=== PATIENT | female | born 1945 | race Caucasian/White ===

== ENCOUNTER 2020-04-25 09:55 | Emergency (ER) | payer MEDICARE, BC, OTHER ==
[2020-04-25] MEDS ORDERED: Sodium Chloride 0.9% 2.5 ML Syringe FLUSH PRN (10:05)
[2020-04-25] MEDS ORDERED: Lactated Ringers 500 ML IV ONE (10:05)
[2020-04-25] MEDS ORDERED: Sodium Chloride 0.9% 10 ML Syringe FLUSH PRN (10:05)
--- NOTE | 2020-04-25 10:11 | EDM.PDOC ---
ED HPI GENERAL MEDICAL PROBLEM - General Chief Complaint: Respiratory Problem Stated Complaint: possible blood clot in ankle Time Seen by Provider: 04/25/20 10:03 Source of Information: Reports: Patient, EMS History Limitations: Reports: No Limitations - History of Present Illness INITIAL COMMENTS - FREE TEXT/NARRATIVE: 75-year-old female status post L3-L5 vertebral fusion on Sunday at [facility] was BIBA for cough and right calf pain. She was sdischarged on , and was supposedly ambulating hourly during her hospitalization. She has been taking [place] for her chronic back pain over the last 6 weeks. She was tested negative for COVID on Sunday. She started having a dry cough 2 days ago which has worsened today, associated with right calf pain and shortness of breath and pleurisy and nausea. She denies chest pain, fever, chills, abdominal pain. She has not had a BM for 4 days. ROS: A 10-point review of systems, other than pertinent positives and negatives as stated per HPI, is otherwise negative Past medical history: No additional pertinent history Past Surgical history: No additional pertinent history Social history: No additional pertinent history Family history: No additional pertinent history PHYSICAL EXAM General: AOx4, GCS = 15, mild distress HEENT: dry mucous membrane Neck: supple, no meningismus, no Kernig or Brudzinski Cardiac: S1S2 tachycardia Respiratory: Bilateral expiratory wheezing, coughing violently Abdomen: Soft, nontender, no rebound or guarding, nondistended, no pulsatile mass. Back: nontender Musculoskeletal: NVI distally, no deformity, right calf tender to palpation, DP pulse +2 bilaterally Neuro: No focal deficits. right calf Pain Score (Numeric/FACES): 5 - Related Data Allergies Allergy/AdvReac Type Severity Reaction Status Date / Time azithromycin [From Zithromax] Allergy Nausea and Verified 09/02/16 12:03 Vomiting Home Meds: Home Meds Estrogens, Conjugated [Premarin] 0.3 mg PO DAILY 02/08/15 [History] Plexus Supplement 1 dose PO DAILY 07/20/16 [History] hydroCHLOROthiazide [Hydrochlorothiazide] 12.5 mg PO DAILY 07/20/16 [History] Citalopram Hydrobromide [Celexa] 10 mg PO DAILY 04/25/20 [History] Pramipexole [Mirapex] 0.125 mg PO BID 04/25/20 [History] Past Medical History HEENT History: Reports: Other (See Below) Other HEENT History: wears glasses; fluid in ear Cardiovascular History: Reports: None Respiratory History: Reports: None Gastrointestinal History: Reports: None Genitourinary History: Reports: None [employer] History: Reports: Musculoskeletal History: Reports: Arthritis Other Musculoskeletal History: hands Neurological History: Reports: Migraines, Vertigo Other Neuro History: 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 Psychiatric History: Reports: None Endocrine/Metabolic History: Reports: None Hematologic History: Reports: Blood Transfusion(s), Other (See Below) Other Hematologic History: had blood transfusion prior to hysterectomy Immunologic History: Reports: None Oncologic (Cancer) History: Reports: None Dermatologic History: Reports: None - Past Surgical History Musculoskeletal Surgical History: Reports: Carpal Tunnel, Other (See Below) Social & Family History - Family History Family Medical History: Noncontributory Oncologic: Reports: Lung - Caffeine Use Caffeine Use: Reports: None ED ROS GENERAL - Review of Systems Review Of Systems: Comprehensive ROS is negative, except as noted in HPI. (see dictation) ED EXAM, GENERAL - Physical Exam Exam: See Below (see dictation) EKG INTERPRETATION EKG Interpretation Comments: 104 bpm, Sinus tachycardia, normal QRS interval, TWi on III,AVF, no STEMI. EKG and rhythm strip interpreted by me at 0959 Course - Vital Signs Last Recorded V/S: Last Vital Signs Temp 97.7 F 04/25/20 10:44 Pulse 107 H 04/25/20 10:44 Resp 16 04/25/20 10:44 BP 155/92 H 04/25/20 10:44 Pulse Ox 95 04/25/20 10:44 - Orders/Labs/Meds Orders: Active Orders 24 hr Category Date Time Status Cardiac Monitoring [RC] . DIRECTED Care 04/25/20 10:05 Active EKG Documentation Completion [RC] STAT Care 04/25/20 10:06 Active Pulse Oximetry [RC] ASDIRECTED Care 04/25/20 10:05 Active CORONAVIRUS COVID-19 PCR PHL Stat Lab 04/25/20 12:18 Received CULTURE BLOOD [BC] Stat Lab 04/25/20 10:03 Received CULTURE BLOOD [BC] Stat Lab 04/25/20 10:08 Received PTT,PARTIAL THROMBOPLSTIN TIME [COAG] Q6 Lab 04/25/20 17:15 Ordered PTT,PARTIAL THROMBOPLSTIN TIME [COAG] Q6 Lab 04/25/20 23:15 Ordered PTT,PARTIAL THROMBOPLSTIN TIME [COAG] Q6 Lab 04/26/20 05:15 Ordered PTT,PARTIAL THROMBOPLSTIN TIME [COAG] Q Lab 04/26/20 11:15 Ordered PTT,PARTIAL THROMBOPLSTIN TIME [COAG] Q Lab 04/26/20 17:15 Ordered PTT,PARTIAL THROMBOPLSTIN TIME [COAG] Q Lab 04/26/20 23:15 Ordered Heparin Sod,Pork In 0.45% Nacl [Heparin-1/2Ns 25,000 Med 04/25/20 12:45 Active Units/500] 25,000 unit in 500 ml IV TITRATE Sodium Chloride 0.9% [Saline Flush] Med 04/25/20 10:05 Active 10 ml FLUSH ASDIRECTED PRN Sodium Chloride 0.9% [Saline Flush] [facility] 04/25/20 10:05 Active 2.5 ml FLUSH ASDIRECTED PRN Blood Culture x2 Reflex Set [OM.PC] Stat Ot 04/25/20 10:06 Ordered Saline Lock Insert [OM.PC] Stat Ot 04/25/20 10:05 Ordered Medication Orders Heparin Sodium/Sodium Chloride (Heparin-1/2ns 25,000 Units/500) 25,000 unit in 500 mls @ 26 mls/hr IV TITRATE MEHDI; Protocol Last Admin: 04/25/20 12:48 Dose: 1,300 units/hr, 26 mls/hr Documented by: DELGADO Cosigned by: MICHAEL Sodium Chloride (Saline Flush) 10 ml FLUSH ASDIRECTED PRN PRN Reason: Keep Vein Open Last Admin: 04/25/20 10:38 Dose: 10 ml Documented by: SLATBRI Sodium Chloride (Saline Flush) 2.5 ml FLUSH ASDIRECTED PRN PRN Reason: Keep Vein Open Last Admin: 04/25/20 10:38 Dose: 2.5 ml Documented by: DELGADO Labs: Laboratory Tests 04/25/20 04/25/20 04/25/20 Range/Units 10:03 10:03 10:03 WBC 6.34 (4.0-11.0) K/uL RBC 3.16 L (4.30-5.90) M/uL Hgb 9.1 L (12.0-16.0) g/dL Hct 27.6 L (36.0-46.0) % MCV 87.3 (80.0-98.0) fL MCH 28.8 (27.0-32.0) pg MCHC 33.0 (31.0-37.0) g/dL RDW Std Deviation 46.3 (28.0-62.0) fl RDW Coeff of Jessica 15 (11.0-15.0) % Plt Count 274 (150-400) K/uL MPV 10.40 (7.40-12.00) fL Neut % (Auto) 72.8 (48.0-80.0) % Lymph % (Auto) 16.9 (16.0-40.0) % Edgar % (Auto) 9.0 (0.0-15.0) % Eos % (Auto) 1.1 (0.0-7.0) % Baso % (Auto) 0.2 (0.0-1.5) % Neut # (Auto) 4.6 (1.4-5.7) K/uL Lymph # (Auto) 1.1 (0.6-2.4) K/uL Edgar # (Auto) 0.6 (0.0-0.8) K/uL Eos # (Auto) 0.1 (0.0-0.7) K/uL Baso # (Auto) 0.0 (0.0-0.1) K/uL Nucleated RBC % 0.0 /100WBC Nucleated RBCs # 0 K/uL INR 1.22 APTT (18.6-31.3) SEC Lactate (0.20-2.00) mmol/L Sodium 136 (136-145) mmol/L Potassium 5.0 (3.5-5.1) mmol/L Chloride 100 (98-107) mmol/L Carbon Dioxide 24.3 (21.0-32.0) mmol/L BUN 27 H (7.0-18.0) mg/dL Creatinine 1.3 H (0.6-1.0) mg/dL Est Cr Clr Drug Dosing TNP Estimated GFR (MDRD) 40.2 ml/min Glucose 154 H (74-106) mg/dL Calcium 8.7 (8.5-10.1) mg/dL Total Bilirubin 0.9 (0.2-1.0) mg/dL AST 1499 H (15-37) IU/L ALT 643 H (14-63) IU/L Alkaline Phosphatase 67 (46-116) U/L Troponin I 0.209 H* (0.000-0.056) ng/mL B-Natriuretic Peptide (<100) PG/ML Total Protein 6.3 L (6.4-8.2) g/dL Albumin 2.9 L (3.4-5.0) g/dL Globulin 3.4 (2.6-4.0) g/dL Albumin/Globulin Ratio 0.9 (0.9-1.6) Acetaminophen ug/mL SARS CoV-2 RNA Rapid ANGIE (NEGATIVE) 04/25/20 04/25/20 04/25/20 Range/Units 10:03 10:03 10:03 WBC (4.0-11.0) K/uL RBC (4.30-5.90) M/uL Hgb (12.0-16.0) g/dL Hct (36.0-46.0) % MCV (80.0-98.0) fL MCH (27.0-32.0) pg MCHC (31.0-37.0) g/dL RDW Std Deviation (28.0-62.0) fl RDW Coeff of Jessica (11.0-15.0) % Plt Count (150-400) K/uL MPV (7.40-12.00) fL Neut % (Auto) (48.0-80.0) % Lymph % (Auto) (16.0-40.0) % Edgar % (Auto) (0.0-15.0) % Eos % (Auto) (0.0-7.0) % Baso % (Auto) (0.0-1.5) % Neut # (Auto) (1.4-5.7) K/uL Lymph # (Auto) (0.6-2.4) K/uL Edgar # (Auto) (0.0-0.8) K/uL Eos # (Auto) (0.0-0.7) K/uL Baso # (Auto) (0.0-0.1) K/uL Nucleated RBC % /100WBC Nucleated RBCs # K/uL INR APTT (18.6-31.3) SEC Lactate 2.1 H* (0.20-2.00) mmol/L Sodium (136-145) mmol/L Potassium (3.5-5.1) mmol/L Chloride (98-107) mmol/L Carbon Dioxide (21.0-32.0) mmol/L BUN (7.0-18.0) mg/dL Creatinine (0.6-1.0) mg/dL Est Cr Clr Drug Dosing Estimated GFR (MDRD) ml/min Glucose (74-106) mg/dL Calcium (8.5-10.1) mg/dL Total Bilirubin (0.2-1.0) mg/dL AST (15-37) IU/L ALT (14-63) IU/L Alkaline Phosphatase (46-116) U/L Troponin I (0.000-0.056) ng/mL B-Natriuretic Peptide 566 H (<100) PG/ML Total Protein (6.4-8.2) g/dL Albumin (3.4-5.0) g/dL Globulin (2.6-4.0) g/dL Albumin/Globulin Ratio (0.9-1.6) Acetaminophen 2.5 ug/mL SARS CoV-2 RNA Rapid ANGIE (NEGATIVE) 04/25/20 04/25/20 Range/Units 11:30 12:18 WBC (4.0-11.0) K/uL RBC (4.30-5.90) M/uL Hgb (12.0-16.0) g/dL Hct (36.0-46.0) % MCV (80.0-98.0) fL MCH (27.0-32.0) pg MCHC (31.0-37.0) g/dL RDW Std Deviation (28.0-62.0) fl RDW Coeff of Jessica (11.0-15.0) % Plt Count (150-400) K/uL MPV (7.40-12.00) fL Neut % (Auto) (48.0-80.0) % Lymph % (Auto) (16.0-40.0) % Edgar % (Auto) (0.0-15.0) % Eos % (Auto) (0.0-7.0) % Baso % (Auto) (0.0-1.5) % Neut # (Auto) (1.4-5.7) K/uL Lymph # (Auto) (0.6-2.4) K/uL Edgar # (Auto) (0.0-0.8) K/uL Eos # (Auto) (0.0-0.7) K/uL Baso # (Auto) (0.0-0.1) K/uL Nucleated RBC % /100WBC Nucleated RBCs # K/uL INR APTT 27.9 (18.6-31.3) SEC Lactate (0.20-2.00) mmol/L Sodium (136-145) mmol/L Potassium (3.5-5.1) mmol/L Chloride (98-107) mmol/L Carbon Dioxide (21.0-32.0) mmol/L BUN (7.0-18.0) mg/dL Creatinine (0.6-1.0) mg/dL Est Cr Clr Drug Dosing Estimated GFR (MDRD) ml/min Glucose (74-106) mg/dL Calcium (8.5-10.1) mg/dL Total Bilirubin (0.2-1.0) mg/dL AST (15-37) IU/L ALT (14-63) IU/L Alkaline Phosphatase (46-116) U/L Troponin I (0.000-0.056) ng/mL B-Natriuretic Peptide (<100) PG/ML Total Protein (6.4-8.2) g/dL Albumin (3.4-5.0) g/dL Globulin (2.6-4.0) g/dL Albumin/Globulin Ratio (0.9-1.6) Acetaminophen ug/mL SARS CoV-2 RNA Rapid ANGIE NEGATIVE (NEGATIVE) Meds: Medications Generic Name Dose Route Start Last Admin Trade Name Paul PRN Reason Stop Dose Admin Heparin Sodium/Sodium Chloride 25,000 unit in 500 mls @ 26 mls/hr 04/25/20 12:45 04/25/20 12:48 Heparin-1/2ns 25,000 Units/500 IV 1,300 units/hr TITRATE MEHDI 26 mls/hr Administration Protocol 1,300 UNITS/HR Sodium Chloride 10 ml 04/25/20 10:05 04/25/20 10:38 Saline Flush FLUSH 10 ml ASDIRECTED PRN Administration Keep Vein Open Sodium Chloride 2.5 ml 04/25/20 10:05 04/25/20 10:38 Saline Flush FLUSH 2.5 ml ASDIRECTED PRN Administration Keep Vein Open Discontinued Medications Generic Name Dose Route Start Last Admin Trade Name Paul PRN Reason Stop Dose Admin Albuterol/Ipratropium 3 ml 04/25/20 10:22 04/25/20 10:36 Duoneb 3.0-0.5 Mg/3 Ml NEB 04/25/20 10:23 3 ml ONETIME ONE Administration Aspirin 324 mg 04/25/20 10:44 04/25/20 12:01 Aspirin PO 04/25/20 10:45 324 mg ONETIME ONE Administration Dexamethasone 6 mg 04/25/20 10:24 04/25/20 10:37 Dexamethasone IVPUSH 04/25/20 10:25 6 mg ONETIME ONE Administration Heparin Sodium (Porcine) 4,000 units 04/25/20 10:44 04/25/20 12:04 Heparin Sodium IVPUSH 04/25/20 10:45 4,000 units BOLUS ONE Administration Protocol Heparin Sodium (Porcine) 1,000 units 04/25/20 12:29 04/25/20 12:46 Heparin Sodium IVPUSH 04/25/20 12:30 1,000 units .BOLUS STA Administration Lactated Ringer's 500 mls @ 999 mls/hr 04/25/20 10:05 04/25/20 10:29 Ringers, Lactated IV 04/25/20 10:35 999 mls/hr .BOLUS ONE Administration Heparin Sodium/Sodium Chloride 25,000 unit in 500 mls @ 23.616 mls/hr 04/25/20 11:15 04/25/20 12:10 Heparin-1/2ns 25,000 Units/500 IV 12 units/kg/hr TITRATE MEHDI 23.616 mls/hr Administration Protocol 12 UNITS/KG/HR Iopamidol 100 ml 04/25/20 11:53 04/25/20 11:53 Isovue Multipack-370 (76%) IVPUSH 04/25/20 11:54 100 ml ONETIME ONE Administration Morphine Sulfate 4 mg 04/25/20 12:57 Morphine IVPUSH 04/25/20 12:58 ONETIME ONE - Re-Assessments/Exams Free Text/Narrative Re-Assessment/Exam: 04/25/20 10:29 Ordered DuoNeb treatment and dexamethasone 6 mg IV 04/25/20 12:11 Patient will require transfer to outside facility for the need of higher level of care not available at this facility, and the need for bridal consultant services unavailable at this facility. Any emergency conditions have been stabilized to the ability of the ED prior to the transfer. Rina Cary is on critical care diversion. Case was discussed and accepted by [facility] in [place] [address]. Edgard Hauser. I called her pharmacy and changed the dosing to [facility] protocal. 04/25/20 13:00 Patient on heparin drip per [facility]TE protocol, flight crew here to transfer patient. She Is tested negative for COVID today. Informed daughter in the ER of her condition. MEDICAL DECISION MAKING: I reviewed the patients past medical records, lab and radiographic findings. I discussed the case with the patient. My differential diagnosis included: Pulmonary embolism, DVT, aspiration pneumonia. CT demonstrated multiple pulmonary emboli, she also demonstrated elevated troponin with elevated BNP likely secondary to right heart strain from multiple PE. She was given aspirin, heparin bolus and drip per [facility] protocol. Patient is hemodynamically stable throughout ED visit. 04/25/20 13:01 Departure - Departure Time of Disposition: 12:28 Disposition: DC/Tfer to Other 70 Condition: Fair Clinical Impression: NSTEMI (non-ST elevated myocardial infarction), Multiple pulmonary emboli - Discharge Information *PRESCRIPTION DRUG MONITORING PROGRAM REVIEWED*: Not Applicable *COPY OF PRESCRIPTION DRUG MONITORING REPORT IN PATIENT JEFF: Not Applicable Referrals: Shara Gibbs DO [Primary Care Provider] - Forms: ED Department Discharge Critical Care Note - Critical Care Note Total Time (mins): 128 Comments: CRITCAL CARE: The high probability of sudden, clinically significant deterioration in the patient's condition required the highest level of my preparedness to intervene urgently. The services I provided to this patient were to treat and/or prevent clinically significant deterioration. Services included the following: chart data review, reviewing nursing notes and/or old charts, documentation time, bridal consultant collaboration regarding findings and treatment options, medication orders and management, direct patient care, vital sign assessments and ordering, interpreting and reviewing diagnostic studies/lab tests. Aggregate critical care time includes only time during which I was engaged in work directly related to the patient's care, as described above, whether at the bedside or elsewhere in the Emergency Department. It did not include time spent performing other reported procedures or the services of residents, students, nurses or physician assistants. Frequent interventions and/or frequent repeat evaluations were required as well as counseling and coordination of care regarding prognosis, treatments, and discussions with patient, staff and consultants. Critical Care (excluding other procedures): 128 minutes Sepsis Event Note (ED) - Focused Exam Vital Signs: Vital Signs Temp Pulse Resp BP Pulse Ox 04/25/20 10:44 97.7 F 107 H 16 155/92 H 95 - My Orders Last 24 Hours: My Active Orders 04/25/20 10:03 CULTURE BLOOD [BC] Stat 04/25/20 10:05 Cardiac Monitoring [RC] . DIRECTED Pulse Oximetry [RC] ASDIRECTED Sodium Chloride 0.9% [Saline Flush] 10 ml FLUSH ASDIRECTED PRN Sodium Chloride 0.9% [Saline Flush] 2.5 ml FLUSH ASDIRECTED PRN Saline Lock Insert [OM.PC] Stat 04/25/20 10:06 EKG Documentation Completion [RC] STAT Blood Culture x2 Reflex Set [OM.PC] Stat 04/25/20 10:08 CULTURE BLOOD [BC] Stat 04/25/20 12:18 CORONAVIRUS COVID-19 PCR PHL Stat 04/25/20 12:45 Heparin Sod,Pork In 0.45% Nacl [Heparin-1/2Ns 25,000 Units/500] 25,000 unit in 500 ml IV TITRATE 04/25/20 17:15 PTT,PARTIAL THROMBOPLSTIN TIME [COAG] Q6H 04/25/20 23:15 PTT,PARTIAL THROMBOPLSTIN TIME [COAG] Q6H 04/26/20 05:15 PTT,PARTIAL THROMBOPLSTIN TIME [COAG] Q6H 04/26/20 11:15 PTT,PARTIAL THROMBOPLSTIN TIME [COAG] Q6H 04/26/20 17:15 PTT,PARTIAL THROMBOPLSTIN TIME [COAG] Q6H 04/26/20 23:15 PTT,PARTIAL THROMBOPLSTIN TIME [COAG] Q6H - Assessment/Plan Last 24 Hours: My Active Orders 04/25/20 10:03 CULTURE BLOOD [BC] Stat 04/25/20 10:05 Cardiac Monitoring [RC] . DIRECTED Pulse Oximetry [RC] ASDIRECTED Sodium Chloride 0.9% [Saline Flush] 10 ml FLUSH ASDIRECTED PRN Sodium Chloride 0.9% [Saline Flush] 2.5 ml FLUSH ASDIRECTED PRN Saline Lock Insert [OM.PC] Stat 04/25/20 10:06 EKG Documentation Completion [RC] STAT Blood Culture x2 Reflex Set [OM.PC] Stat 04/25/20 10:08 CULTURE BLOOD [BC] Stat 04/25/20 12:18 CORONAVIRUS COVID-19 PCR PHL Stat 04/25/20 12:45 Heparin Sod,Pork In 0.45% Nacl [Heparin-1/2Ns 25,000 Units/500] 25,000 unit in 500 ml IV TITRATE 04/25/20 17:15 PTT,PARTIAL THROMBOPLSTIN TIME [COAG] Q6H 04/25/20 23:15 PTT,PARTIAL THROMBOPLSTIN TIME [COAG] Q6H 04/26/20 05:15 PTT,PARTIAL THROMBOPLSTIN TIME [COAG] Q6H 04/26/20 11:15 PTT,PARTIAL THROMBOPLSTIN TIME [COAG] Q6H 04/26/20 17:15 PTT,PARTIAL THROMBOPLSTIN TIME [COAG] Q6H 04/26/20 23:15 PTT,PARTIAL THROMBOPLSTIN TIME [COAG] Q6H
[2020-04-25] MEDS ORDERED: Albuterol/Ipratropium 3.0-0.5 MG/3 ML Neb Soln NEB ONE (10:22)
[2020-04-25] MEDS ORDERED: Dexamethasone 10 MG/ML SDV IVPUSH ONE (10:24)
--- NOTE | 2020-04-25 10:30 | CR ---
Chest: Portable view of the chest was done in an AP projection. Comparison: Prior chest x-ray of 09/02/16. Elevated right hemidiaphragm is seen which is an interval change from prior chest x-ray. Atelectasis is seen within the right lung base. Left lung is clear. Heart is felt to be mildly enlarged. Upper mediastinum is normal. Scattered disc space narrowing is noted within the spine with mild scoliosis. Impression: 1. Elevated right hemidiaphragm is interval change from prior exam. Etiology of this finding is not appreciated on this chest x-ray. 2. Right basilar atelectasis. 3. Mild cardiomegaly. Diagnostic code #3 This report was dictated in MDT
[2020-04-25 10:40] LABS: BLOOD UREA NITROGEN,BUN 27 mg/dL (7.0-18.0); CARBON DIOXIDE,CO2 24.3 mmol/L (21.0-32.0); CHLORIDE,CL 100 mmol/L (98-107); GLUCOSE RANDOM 154 mg/dL (74-106); SODIUM,NA 136 mmol/L (136-145)
[2020-04-25] MEDS ORDERED: Aspirin 81 MG Tab.Chew PO ONE (10:44)
[2020-04-25] MEDS ORDERED: Heparin Sodium 5,000 Units/ML Vial IVPUSH ONE (10:44)
[2020-04-25] MEDS ORDERED: Heparin Sod,Pork In 0.45% Nacl 25,000 UNIT/500 ML IV.SOLN IV SCH ×2 (11:15→12:45)
[2020-04-25] MEDS ORDERED: Iopamidol 755 MG/ML 500 ML Multipack Bottle IVPUSH ONE (11:53)
--- NOTE | 2020-04-25 12:18 | CT ---
CT chest Technique: Multiple axial sections through the chest were obtained. Intravenous contrast was utilized. Study has been performed as a pulmonary angiogram protocol. Comparison: No prior chest CT is available, prior chest x-ray performed earlier on the same day (10:12 AM) Findings: Pulmonary emboli are noted within the distal left main pulmonary artery extending into the segmental branch of the left upper lobe pulmonary artery. Smaller pulmonary emboli are seen within subsegmental branches within the right and left lower lobes. Pulmonary emboli are seen within the distal right main pulmonary artery extending into segmental branches of the right upper lung. No findings of right decompensation. Heart is mildly enlarged. Visualized upper abdominal structures showed nothing acute. Elevated right hemidiaphragm is seen which contains liver. Findings suggest the possibility of paralysis of the diaphragm. Thick area of atelectasis noted within the right lung base. Minimal atelectasis is seen posteriorly within both lungs. Bone window settings were reviewed. Scattered degenerative change is seen within the thoracic spine. No acute osseous finding is appreciated. Impression: 1. Multiple pulmonary emboli as described above. 2. No evidence of right heart dysfunction. 3. Elevated right hemidiaphragm suggesting the possibility of diaphragmatic paralysis. 4. Areas of atelectasis as noted above. Diagnostic code #5 This report was dictated in MDT
[2020-04-25] MEDS ORDERED: Heparin Sodium 5,000 Units/ML Vial IVPUSH STA (12:29)
--- NOTE | 2020-04-25 12:56 | US ---
Right lower extremity deep venous ultrasound: Duplex and color Doppler evaluation was obtained of the right common femoral, superficial femoral, popliteal, anterior tibial and posterior tibial veins. Normal compression and Doppler blood flow are seen. Impression: 1. No evidence of deep venous thrombosis within the right lower extremity. Diagnostic code #1 This report was dictated in MDT
[2020-04-25] MEDS ORDERED: Morphine 4 MG/ML Syringe IVPUSH ONE (12:57)
[2020-04-25] MEDS ORDERED: Ondansetron 4 MG/2 ML SDV IVPUSH ONE (13:05)
[2020-04-25] MEDS ORDERED: Ondansetron 4 MG/2 ML SDV ONE (13:05)
[2020-04-25 13:27] VITALS: BP 151/89; PULSE 97
== END 2020-04-25 13:30 ==
LOC: MW.ED 09:55
DX: I21.4 Non-ST elevation (NSTEMI) myocardial infarction (principal); Z20.828 Contact with and (suspected) exposure to other viral communicable diseases; Z79.899 Other long term (current) drug therapy; Z88.1 Allergy status to other antibiotic agents
CPT/HCPCS: 36415; 71045; 71275; 80053; 80307; 83605; 83880; 84484; 85025; 85610; 85730; 87040; 93005; 93971; 96361; 96365; 96375; 99291; 99292; A9270; J1100; J1644; J2270; J2405; J7120; Q9967; U0002; J7620-GY